=== PATIENT | male | born 1995 | race Caucasian/White ===

== ENCOUNTER 2018-09-19 10:13 | Inpatient (IN) ==
[2018-09-19] MEDS ORDERED: Naloxone 0.4 MG/ML INJ IVP PRN (10:44)
--- NOTE | 2018-09-19 11:01 | Pulmonology History & Physical ---
<Jordan Lei M - Last Filed: 09/19/18 16:33> Date of Encounter: 09/19/18 History of Present Illness HPI: Mr. Ownes is a 23 year old male Medications and Allergies Clindamycin HCl [Cleocin HCl] 300 mg PO TID 09/19/18 [History] Allergy/AdvReac Type Severity Reaction Status Date / Time Amoxicillin Allergy Hives Verified 12/28/16 09:05 Penicillins Allergy Hives Verified 12/28/16 09:05 All Systems: The remainder of the systems were reviewed and are negative Physical Examination Vital Signs: Vital Signs, Last 4 Hours Pulse Resp BP Pulse Ox 09/19/18 15:17 113 09/19/18 15:00 14 111/69 96 09/19/18 14:00 121 14 111/73 95 09/19/18 13:00 121 16 114/54 97 Results - Laboratory Findings CBC and BMP: 09/19/18 13:35 09/19/18 13:35 PT/INR, D-dimer PT 12.3 Seconds (9.4-12.1) H 09/19/18 07:51 Abnormal lab findings: Abnormal lab results PT 12.3 Seconds (9.4-12.1) H 09/19/18 07:51 APTT 38.1 Seconds (26.0-36.0) H 09/19/18 07:51 Glucose 62 mg/dL (70-105) L 09/19/18 13:35 Calcium 8.2 mg/dL (8.6-10.3) L 09/19/18 13:35 Total Bilirubin 0.2 mg/dL (0.3-1.0) L 09/19/18 07:51 Creatine Kinase > 64971 Units/L (30-223) H 09/19/18 13:35 Troponin I 0.24 ng/mL (< 0.04) H* 09/19/18 13:35 TSH 8.022 mcIU/mL (0.340-5.600) H 09/19/18 07:51 Urine Protein 30 mg/dL (Neg-Trace) H 09/19/18 08:03 Granular Casts Few per lpf (None Seen) H 09/19/18 08:03 Salicylates < 2.5 mg/dL (15.0-30.0) L 09/19/18 07:51 Urine Opiates Screen Positive ng/mL (Xxbxki=000) H 09/19/18 08:03 Acetaminophen < 10 mcg/mL (10-20) L 09/19/18 07:51 U Benzodiazepines Scrn Positive ng/mL (Msyvum=920) H 09/19/18 08:03 - Attending Attestation I examined this patient and my medical decision-making was reviewed with the Resident Physician. I agree with the documented findings, disposition and treatment plan as described except to the extent set forth below. Patient seen and examined. Labs, radiology, chart personally reviewed. 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 Pulmonary: Acceptable oxygenation and ventilation Cardiovascular: stable and his temperature is normalizing GI: Nutrition per dietary and GI prophylaxis per routine Heme: DVT prophylaxis per routine Renal; urine out put and renal funtion reviewed. Patient with evidence of rhabdomyolysis with elevation of CPK which could be from his lying down and he would be treated with sodium bicarbonate drip and I am hoping he would be discharged home in next 24 hours. Endorcine: blood glucose is monitored Lines: all lines checked and no evidence of infections Skin: skin care to prevent pressure ulcers per nursing routine care Patient is hemodynamically stable and transferred to the floor. Have discussed with the parents at the bedside regarding how serious his this and they understand that and they would do everything to keep him safe when he is discharged home. She was in the rehabilitation for substance abuse. <Christopher Lewis - Last Filed: 09/19/18 18:51> Date of Encounter: 09/19/18 Time of Encounter: 10:00 Assessment and Plan (1) Hypothermia Current visit: Yes Status: Acute Pt was found down, unknown down time. Initial internal temp was 84.5 Temp normal now at 98.0 without blankets or bear hugger Vitals stable. Pt alert and oriented x3. Labs on admission revealed elevated troponin and CK, likely caused by hyp othermia and unknown down time Repeat CK increased at >28075. Started D5 half NS with bicarb. Repeat Troponin remains elevated at 0.24, no EKG changes, pt not complaining of chest pain, SOB, or diaphoresis at this time. Pt does have hx of polysubstance abuse and completed a 12 week rehab program yesterday. UDS positive for Benzos and Opioids. 1 dose of Narcan was given by EMS in the field and pt's mentation improved. Pt's mother brought in a notebook in which the pt had wrote "I wish I wasn't alive" and had a drawing of a gun against a sad face Multiple thin scars noted on pt's abdomen. Pt admits to self harm when he was 16. Psych consult for known bipolar disorder and possibility of self harm. Pt does deny any SI/HI at this time. Continue to trend CK/Trop/Lactic Acid Monitor electrolytes Stable to transfer out of ICU. Spoke with Dr. Dobbins, however pt may stay in ICU overnight based on repeat labs Continue Clindamycin for known dental/intraoral abscess Qualifiers: Encounter type: initial encounter Qualified Code(s): T68.XXXA - Hypothermia, initial encounter (2) Rhabdomyolysis Current visit: Yes Status: Acute plan as above Qualifiers: Rhabdomyolysis type: non-traumatic Qualified Code(s): M62.82 - Rhabdomyolysis (3) Substance abuse Current visit: Yes Status: Chronic plan as above (4) Elevated troponin Current visit: Yes Status: Acute plan as above History of Present Illness Chief complaint: hypothermia/OD HPI: Mr. Owens is a 23M with PMH of polysubstance abuse who presented today after being found by a bystander. He was lying [place] the middle [place] and was unresponsive. EMS arrived and found the pt to be very cold with wet clothes. Of note, the outside ambient temperature was 28 degrees Fahrenheit and it had been raining all night. EMS administered Narcan, but were unable to get an IV or Accu-check. Upon arrival to the ED, pt's temp was 84.7. Pt responded to painful stimuli. Extremities were mottled, but pulses were palpable. He received 2L warmed saline. Placed on bear hugger and in C-collar since unknown hx of fall or trauma. Anand catheter was placed and bladder temp was 84.5. During the encounter with this provider, pt was responsive to verbal stimuli and answered some questions. Pt was shivering underneath multiple blankets and a bear-hugger. Pt's family at bedside stated the pt had just left rehab yesterday for hx of narcotic and benzodiazepine abuse. Pt was able to state that he did fall and thinks he struck his head. Currently complaining of diffuse back pain, left thigh pain, and right calf pain. Past Med Surg Social Fam HX - Past Medical History Medical history: no medical history Psychiatric history: anxiety, depression, prior suicide attempt - Past Surgical History Surgical History: no surgical history - Social History Smoking Status: Current every day smoker Smokeless Tobacco Status: No Alcohol use: none Drug use: cocaine, opiates, marijuana, IV Drug Use All Systems: The remainder of the systems were reviewed and are negative - Constitutional Constitutional: no chills, no fever(s), no weakness - Cardiovascular Cardiovascular: no chest pain, no diaphoresis, no dyspnea, no palpitations - Respiratory Respiratory: no cough, no dyspnea, no dyspnea on exertion, no wheezing - Gastrointestinal Gastrointestinal: no abdominal pain, no nausea, no vomiting - Musculoskeletal Musculoskeletal: no weakness, no numbness, no tingling - Neurological Neurological: no confusion, no numbness, no syncope, no tingling, no weakness - Psychiatric Psychiatric: depression, no suicidal ideation Physical Examination General appearance: lethargic ENT: oropharynx dry Neck: supple Effort: normal Inspection: normal Auscultation: bilateral: clear Percussion: bilateral: not dull Tactile fremitus: bilateral: normal Cardiovascular: other (tachycardic) Gastrointestinal: normoactive bowel sounds, soft, non-tender, non-distended Integumentary: normal Extremities: no cyanosis, no edema, no clubbing, pink and warm, pulses normal Musculoskeletal: no deformities normal mental status, motor strength normal and symmetric, other (pupils pinpoint bilaterally ) depressed Results - Laboratory Findings CBC and BMP: 09/19/18 13:35 09/19/18 13:35
[2018-09-19 13:51] LABS: Basophils % 0.1 %; Eosinophils % 0.1 %; Hematocrit 45.3 % (37.5-50.1); Hemoglobin 15.1 g/dL (12.9-16.9); Immature Granulocytes % 0.2 % (0-4); Lymphocytes # 0.9 K/mcL (0.6-4.6); Lymphocytes % 9.7 %; Mean Corpuscular HGB Conc 33.3 g/dL (31.6-35.5); Mean Corpuscular Hemoglobin 30.4 pg (28.0-33.3); Mean Corpuscular Volume 91.1 fL (83.0-100.0); Monocytes # 0.6 K/mcL (0.0-1.3); Neutrophils # 7.3 K/mcL (1.6-8.9); Platelet Count 206 K/mcL (140-400); Red Blood Count 4.97 M/mcL (4.19-5.50); Red Cell Distribution Width 11.9 % (11.5-14.5); Segmented Neutrophils % 82.9 %
[2018-09-19 14:54] LABS: BUN/Creatinine Ratio 15 (6-26); Blood Urea Nitrogen 17 mg/dL (6-20); Calcium 8.2 mg/dL (8.6-10.3); Carbon Dioxide 26 mEq/L (23-29); Chloride 107 mEq/L (98-107); Creatine Kinase > 20000 Units/L (30-223); Glucose 62 mg/dL (70-105); Osmolality,Calculated 288 (280-300); Potassium 4.6 mEq/L (3.5-5.1); Sodium 139 mEq/L (136-145); eGFR For Non-African Americans > 60 (> 60)
[2018-09-19] MEDS ORDERED: Ringers Solution, Lactated 1,000 ML ONE (15:11)
[2018-09-19 15:15] LABS: Red Blood Count 5.58 M/mcL (4.19-5.50)
[2018-09-19] MEDS ORDERED: Ringers Solution, Lactated 1,000 ML IVC SCH (15:15)
[2018-09-19 15:16] LABS: Hematocrit 51.6 % (37.5-50.1); Immature Granulocytes % 0.7 % (0-4); Mean Corpuscular HGB Conc 32.9 g/dL (31.6-35.5); Mean Corpuscular Hemoglobin 30.5 pg (28.0-33.3); Mean Corpuscular Volume 92.5 fL (83.0-100.0); Mean Platelet Volume 10.4 fL (9.4-12.4); Neutrophils # 9.1 K/mcL (1.6-8.9); Platelet Count 272 K/mcL (140-400); Red Cell Distribution Width 11.9 % (11.5-14.5); Segmented Neutrophils % 71.7 %
[2018-09-19 15:17] LABS: Basophils # 0.1 K/mcL (0.0-0.2); Basophils % 0.4 %; Eosinophils % 0.2 %; Lymphocytes # 2.2 K/mcL (0.6-4.6); Lymphocytes % 17.3 %; Monocytes # 1.2 K/mcL (0.0-1.3); Monocytes % 9.7 %
[2018-09-19 15:22] LABS: INR 1.1; Prothrombin Time 12.3 Seconds (9.4-12.1)
[2018-09-19 15:23] LABS: Activated Partial Thrombo Time 38.1 Seconds (26.0-36.0)
[2018-09-19 15:25] LABS: Bilirubin,Urine Negative (Negative); Blood,Urine Negative (Negative); Clarity,Urine Clear (Clear); Color,Urine Yellow (Yellow); Glucose,Urine (UA) Normal (Normal); Ketones,Urine Negative (Negative); Leukocyte Esterase,Urine Negative (Negative); Nitrite,Urine Negative (Negative); PH,Urine 5.5 pH Units (5.0-8.0); Protein,Urine 30 mg/dL (Neg-Trace); Specific Gravity,Urine 1.017 (1.010-1.025); Urobilinogen,Urine Normal (Normal); WBC,Urine 0-3 per hpf (0-3)
[2018-09-19 15:26] LABS: Amorphous Sediment,Urine Few (Few); Granular Casts,Urine Few per lpf (None Seen); Hyaline Casts,Urine Few per lpf (None-Few); Mucus,Urine Few (Few)
[2018-09-19 15:34] LABS: BUN/Creatinine Ratio 15 (6-26); Blood Urea Nitrogen 17 mg/dL (6-20); Carbon Dioxide 30 mEq/L (23-29); Chloride 103 mEq/L (98-107); Glucose 137 mg/dL (70-105); Osmolality,Calculated 296 (280-300); Potassium 4.9 mEq/L (3.5-5.1); Sodium 141 mEq/L (136-145); eGFR For Non-African Americans > 60 (> 60)
[2018-09-19 15:35] LABS: Alanine Aminotransferase 32 Units/L (7-52); Albumin 5.1 g/dL (3.5-5.7); Albumin/Globulin Ratio 1.8 (1.1-2.2); Alkaline Phosphatase 101 Units/L (34-104); Aspartate Amino Transferase 31 Units/L (13-39); Bilirubin,Direct 0.1 mg/dL (0.0-0.2); Bilirubin,Indirect 0.1 mg/dL (0.0-1.2); Bilirubin,Total 0.2 mg/dL (0.3-1.0); Calcium 9.5 mg/dL (8.6-10.3); Creatine Kinase 455 Units/L (30-223); Globulin 2.8 g/dL (2.4-3.5); Total Protein 7.9 g/dL (6.4-8.9)
[2018-09-19 15:38] LABS: Acetaminophen < 10 mcg/mL (10-20); Ethanol < 10 mg/dL (Less than 10); Salicylate < 2.5 mg/dL (15.0-30.0); Thyroid Stimulating Hormone 8.022 mcIU/mL (0.340-5.600)
[2018-09-19 15:46] LABS: Amphetamine Screen,Urine Negative ng/mL (Cutoff=1000); Barbiturate Screen,Urine Negative ng/mL (Cutoff=200); Benzodiazepines Screen,Urine Positive ng/mL (Cutoff=200)
[2018-09-19 15:47] LABS: Cannabinoid Screen,Urine Negative ng/mL (Cutoff = 50); Cocaine Screen,Urine Negative ng/mL (Cutoff= 300); Opiate Screen,Urine Positive ng/mL (Cutoff=300); Phencyclidine Screen,Urine Negative ng/mL (Cutoff=25)
[2018-09-19] MEDS ORDERED: D5% in 0.45% NACL 1,000 ML IVC SCH (16:00)
[2018-09-19 16:41] LABS: VBG HCO3 21 mEq/L (21-27); VBG PCO2 72 mmHg (41-51); VBG PH 7.08 pH Units (7.32-7.42); VBG PO2 62 mmHg (25-50)
[2018-09-19] MEDS: Nicotine 21 MG PATCH.TD24 TD SCH (19:10)
[2018-09-19 21:16] LABS: Troponin I 0.24 ng/mL (< 0.04)
[2018-09-19 21:26] LABS: Creatine Kinase > 20000 Units/L (30-223)
[2018-09-20] MEDS ORDERED: D5% in 0.45% NACL 1,000 ML IVC SCH (03:30)
[2018-09-20 05:26] LABS: Basophils % 0.1 %; Eosinophils # 0.1 K/mcL (0.0-0.6); Eosinophils % 1.1 %; Hematocrit 39.1 % (37.5-50.1); Immature Granulocytes % 0.3 % (0-4); Lymphocytes # 1.6 K/mcL (0.6-4.6); Lymphocytes % 22.1 %; Mean Corpuscular HGB Conc 34.3 g/dL (31.6-35.5); Mean Corpuscular Hemoglobin 30.9 pg (28.0-33.3); Mean Corpuscular Volume 90.3 fL (83.0-100.0); Mean Platelet Volume 10.3 fL (9.4-12.4); Monocytes # 0.5 K/mcL (0.0-1.3); Monocytes % 7.6 %; Neutrophils # 4.9 K/mcL (1.6-8.9); Platelet Count 171 K/mcL (140-400); Red Blood Count 4.33 M/mcL (4.19-5.50); Red Cell Distribution Width 11.9 % (11.5-14.5); Segmented Neutrophils % 68.8 %
[2018-09-20 05:30] LABS: Hemoglobin 13.4 g/dL (12.9-16.9)
[2018-09-20 06:33] LABS: Alanine Aminotransferase 97 Units/L (7-52); Albumin 3.5 g/dL (3.5-5.7); Albumin/Globulin Ratio 1.8 (1.1-2.2); Alkaline Phosphatase 61 Units/L (34-104); Aspartate Amino Transferase 386 Units/L (13-39); BUN/Creatinine Ratio 12 (6-26); Bilirubin,Total 0.5 mg/dL (0.3-1.0); Blood Urea Nitrogen 11 mg/dL (6-20); Calcium 8.1 mg/dL (8.6-10.3); Carbon Dioxide 27 mEq/L (23-29); Chloride 105 mEq/L (98-107); Creatine Kinase > 20000 Units/L (30-223); Globulin 1.9 g/dL (2.4-3.5); Glucose 120 mg/dL (70-105); Magnesium 1.9 mg/dL (1.6-2.6); Osmolality,Calculated 287 (280-300); Phosphorous 2.9 mg/dL (2.7-4.5); Potassium 3.5 mEq/L (3.5-5.1); Sodium 138 mEq/L (136-145); Total Protein 5.4 g/dL (6.4-8.9); eGFR For Non-African Americans > 60 (> 60)
[2018-09-20] MEDS: Nicotine 21 MG PATCH.TD24 TD SCH (08:18)
--- NOTE | 2018-09-20 08:44 | Pulmonology Progress Note ---
<Whitney Carrion C - Last Filed: 09/20/18 13:05> Date of Encounter: 09/20/18 Time of Encounter: 08:44 Assessment and Plan (1) Hypothermia Current Visit: Yes Status: Resolved Initial rectal termperature upon arrival of 84.5 degrees F. Current temperature 98.1 with out blankets. Patient resting comfortably, eating, drinking, out of bed to use the toilet. Patient vitals stable. Continuing to trend troponins, CPK. Patient stable to transfer out of ICU to medical floor without telemetry. Will speak with admitting hospitalist. Continue Clindamycin for intraoral/ dental abscess. Qualifiers: Encounter type: initial encounter Qualified Code(s): T68.XXXA - Hypothermia, initial encounter (2) Rhabdomyolysis Current Visit: Yes Status: Acute Patient found down in local [place] morning of 09/19/2018, unknown last well. Initial CPK of 455. Subsequent CPK >41174 x3. Initial lactic acid of 2.9 has returned to normal at values < 1.0 x3. Patient complaining of lower extremity aches bilaterally. Continue monitoring CPK, troponin, renal function. Qualifiers: Rhabdomyolysis type: non-traumatic Qualified Code(s): M62.82 - Rhabdomyolysis (3) Elevated creatine kinase Current Visit: Yes Status: Acute Plan as above. (4) Elevated troponin Current Visit: Yes Status: Acute Troponin trending up to 0.24 in two consecutive blood draws. Repeat Troponin this morning of 0.20. Will continue to trend. Patient denies chest pain, shortness of breath at this time. Patient stable to transfer out of ICU. (5) Suicidal ideation Current Visit: Yes Status: Acute Last evening, while speaking on the phone with his mother, the patient voiced suicidal ideation. Patient's mother called ICU nurse to inform. Night team placed Psych consult. Sitter in patient room currently. Patient denied active suicidal ideation during exam; however, is agreeable to speaking with psych team. (6) Substance abuse Current Visit: Yes Status: Chronic Patient has history of polysubstance abuse. Recent rehab completion 2-3 days prior to arrival. Urine tox screen positive for opiates and benzos. Subjective Principal diagnosis: Hypothermia Interval history: Patient was found down the [place] of 09/19/2018 [place], with an unkn own last well. Secondary to drug overdose. Patient tested positive for opiates and benzos. Rectal temperature initially of 84.5 F. Current temp is 98.1 without bear hugger or blankets. Vitals stable since admission. Patient is alert and oriented to person, place, time. Trending CPK remained >60380. Continuing IV fluid hydration with D5 half normal saline with bicarb. Troponins of 0.24 in two consecutive blood draws, will continue to trend. Patient denies shortness of breath, chest pain at this time. Patient eating, drinking, and out of bed since yesterday afternoon. History of polysubstance abuse with recent rehab completion. Patient voiced suicidal ideation to mother last night, psych consulted, sitter in room currently. Objective PUL Vital signs: Last Vital Signs Temp 98.3 F 09/20/18 07:58 Pulse 106 09/20/18 07:58 Resp 11 09/20/18 07:58 BP 114/68 09/20/18 07:58 Pulse Ox 97 09/20/18 07:58 General appearance: no acute distress, alert Effort: normal Auscultation: bilateral: clear Cardiovascular: regular rate and rhythm Extremities: no cyanosis, pink and warm Musculoskeletal: no deformities, other (Pain in bilateral lower extermities. Right worse than the left with palpation. ) other (Patient agreeable to speaking with psych regarding stated suicidal ideations. Does not admit to active suicidal ideation at this time. ) Results - Laboratory Findings CBC and BMP: 09/20/18 04:53 09/20/18 04:53 PT/INR, D-dimer PT 12.3 Seconds (9.4-12.1) H 09/19/18 07:51 Abnormal lab findings: Abnormal lab results PT 12.3 Seconds (9.4-12.1) H 09/19/18 07:51 APTT 38.1 Seconds (26.0-36.0) H 09/19/18 07:51 VBG pH 7.08 pH Units (7.32-7.42) L* 09/19/18 08:37 VBG pCO2 72 mmHg (41-51) H* 09/19/18 08:37 VBG pO2 62 mmHg (25-50) H 09/19/18 08:37 Glucose 120 mg/dL (70-105) H 09/20/18 04:53 Calcium 8.1 mg/dL (8.6-10.3) L 09/20/18 04:53 AST 386 Units/L (13-39) H 09/20/18 04:53 ALT 97 Units/L (7-52) H 09/20/18 04:53 Creatine Kinase > 65298 Units/L (30-223) H 09/20/18 04:53 Troponin I 0.24 ng/mL (< 0.04) H* 09/19/18 20:41 Serum Total Protein 5.4 g/dL (6.4-8.9) L 09/20/18 04:53 Globulin 1.9 g/dL (2.4-3.5) L 09/20/18 04:53 TSH 8.022 mcIU/mL (0.340-5.600) H 09/19/18 07:51 Urine Protein 30 mg/dL (Neg-Trace) H 09/19/18 08:03 Granular Casts Few per lpf (None Seen) H 09/19/18 08:03 Salicylates < 2.5 mg/dL (15.0-30.0) L 09/19/18 07:51 Urine Opiates Screen Positive ng/mL (Vknfdb=018) H 09/19/18 08:03 Acetaminophen < 10 mcg/mL (10-20) L 09/19/18 07:51 U Benzodiazepines Scrn Positive ng/mL (Jqapjf=646) H 09/19/18 08:03 - Clinical Findings Intake & Output: Intake & Output 09/19/18 09/20/18 09/20/18 23:59 07:59 15:59 Intake Total 1580 / 1580 240 / 240 240 / 240 Output Total 550 / 550 1100 / 1100 350 / 350 Balance 1030 / 1030 -860 / -860 -110 / -110 Consult Discharge Plan - Plan Referrals: NONE,PCP [Primary Care Provider] - <Jordan Lei - Last Filed: 09/21/18 08:18> Date of Encounter: 09/21/18 Objective PUL Vital signs: Last Vital Signs Temp 98.3 F 09/20/18 07:58 Pulse 116 09/20/18 09:00 Resp 25 09/20/18 09:00 BP 109/73 09/20/18 09:00 Pulse Ox 98 09/20/18 09:00 Results - Laboratory Findings CBC and BMP: 09/20/18 04:53 09/20/18 04:53 PT/INR, D-dimer PT 12.3 Seconds (9.4-12.1) H 09/19/18 07:51 Abnormal lab findings: Abnormal lab results PT 12.3 Seconds (9.4-12.1) H 09/19/18 07:51 APTT 38.1 Seconds (26.0-36.0) H 09/19/18 07:51 VBG pH 7.08 pH Units (7.32-7.42) L* 09/19/18 08:37 VBG pCO2 72 mmHg (41-51) H* 09/19/18 08:37 VBG pO2 62 mmHg (25-50) H 09/19/18 08:37 Glucose 120 mg/dL (70-105) H 09/20/18 04:53 Calcium 8.1 mg/dL (8.6-10.3) L 09/20/18 04:53 AST 386 Units/L (13-39) H 09/20/18 04:53 ALT 97 Units/L (7-52) H 09/20/18 04:53 Creatine Kinase > 96674 Units/L (30-223) H 09/20/18 04:53 Troponin I 0.20 ng/mL (< 0.04) H* 09/20/18 08:26 Serum Total Protein 5.4 g/dL (6.4-8.9) L 09/20/18 04:53 Globulin 1.9 g/dL (2.4-3.5) L 09/20/18 04:53 TSH 8.022 mcIU/mL (0.340-5.600) H 09/19/18 07:51 Urine Protein 30 mg/dL (Neg-Trace) H 09/19/18 08:03 Granular Casts Few per lpf (None Seen) H 09/19/18 08:03 Salicylates < 2.5 mg/dL (15.0-30.0) L 09/19/18 07:51 Urine Opiates Screen Positive ng/mL (Dihcjb=999) H 09/19/18 08:03 Acetaminophen < 10 mcg/mL (10-20) L 09/19/18 07:51 U Benzodiazepines Scrn Positive ng/mL (Cvbkwh=218) H 09/19/18 08:03 - Clinical Findings Intake & Output: Intake & Output 09/19/18 09/20/18 09/20/18 23:59 07:59 15:59 Intake Total 1580 / 1580 240 / 240 240 / 240 Output Total 550 / 550 1100 / 1100 350 / 350 Balance 1030 / 1030 -860 / -860 -110 / -110 - Attending Attestation The history, physical exam, and medical decision making was performed by the medical student either while I was physically present and actively involved or I personally re-performed the exam and medical decision making. I have verified the accuracy of the medical student's documentation with regards to the history, physical exam findings, and medical decision making. Labs, radiology, chart personally reviewed. 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 Continue IV fluid and clinically patient has no evidence of significant rhabdomyolysis and he can be transferred to the floor. Endorcine: blood glucose is monitored Lines: all lines checked and no evidence of infections Skin: skin care to prevent pressure ulcers per nursing routine care Psych: She stated he had suicidal thoughts when he overdosed, however he is not suicidal at this time and patient can be transferred to the floor with the psych evaluation.
[2018-09-20] MEDS ORDERED: Naloxone 0.4 MG/ML INJ IVP PRN (12:54)
--- NOTE | 2018-09-20 15:49 | Emergency Department Note ---
Disposition Clinical Impression: Hypothermia, Elevated CK, Elevated troponin, Lactic acidosis, Altered mental status, History of substance abuse Disposition: Admitted As Inpatient Condition: Fair Time of Disposition: 08:24 General Adult HPI - General Chief complaint: ED Altered Mental Status Stated complaint: Hypothermia, OD Source: EMS Mode of arrival: EMS Limitations: altered mental status Nursing Notes Reviewed: Yes Vital Signs Reviewed: Yes - History of Present Illness HPI Narrative: Patient was seen and evaluated under WRONG account number, this is copy of dictation note Time Seen by Provider: 09/19/18 07:54 Source: EMS Mode of arrival: EMS Limitations: altered mental status Nursing Notes Reviewed: Yes Vital Signs Reviewed: Yes - History of Present Illness HPI Narrative: Baron Argueta presents via EMS with concern for possible drug overdose and hypothermia. He was found outside on a football field unresponsive when a bystander called EMS. The ambient temperature outside is 33F and raining all night. Narcan was administered. His glucose was reportedly 130s. Bedside point of care glucose performed 133. Patient presents with the rectal temperature of 84.7. He is shivering with constricted pupils are sluggish and reactive. He localizes to pain. He is clenched at the mouth and shivering. Immediately his drenched bed sheets and blankets were replaced with warm dry blankets. The warm ers were turned on in the trauma resuscitation bay. A cervical collar was immediately placed upon arrival. With cervical mobilization she was rolled to evaluate for any obvious trauma to the back which was absent. His extremities are cool to the touch and slightly cyanotic without any obvious necrosis. Delayed cap refill. nurse monitoring and pulse oximetry was placed which she is 97 with a sinus rhythm and 100% on room air. He is protecting his airway. His initial GCS is [id number]. - Related Data Home Medications Medication Instructions Recorded Confirmed Clindamycin HCl [Cleocin HCl] 300 mg PO TID 09/19/18 09/19/18 Allergies Allergy/AdvReac Type Severity Reaction Status Date / Time Amoxicillin Allergy Hives Verified 12/28/16 09:05 Penicillins Allergy Hives Verified 12/28/16 09:05 Review of Systems: As Per HPI Limitations: ROS unobtainable due to patients medical condition Past Medical History - Past Medical History Source: old records reviewed Medical history: Reports: no medical history Surgical history: Reports: no surgical history Psychiatric history: Reports: anxiety, depression, prior suicide attempt - Social History Smoking Status: Current every day smoker Smokeless Tobacco Status: No Alcohol use: Reports: none Drug use: Reports: cocaine, opiates, marijuana, IV Drug Use Physical Exam - General Limitations: altered mental status General appearance: lethargic, other (Very cold to the touch) - Head Head exam: atraumatic, normocephalic - Eye Eye exam: Present: PERRL, miosis - ENT ENT exam: TM's normal bilaterally, other (His teeth are clenched) - Neck Neck exam: Present: other (Patient was placed in the cervical collar) - Chest Chest inspection: Present: normal inspection, symmetric chest wall rise. Absent: rash - Expanded Chest Exam Trauma: Absent: crepitus, laceration, wound - Expanded Respiratory Exam Location: rhonchi: Lower, Right, Left - Cardiovascular Cardiovascular exam: Present: regular rate, normal rhythm, normal heart sounds - Abdominal Exam Abdominal exam: Present: soft. Absent: trauma - Male exam: Present: normal inspection, circumcised - Extremities Exam Extremities exam: Present: other (Delayed capillary refill with peripheral cyanosis), multiple old linear scars to forearm - Expanded Neurological Exam Coma Scale Eye Opening: Spontaneous Coma Scale Motor Response: Localizes to Pain Coma Scale Verbal Response: None Coma Scale Total: 10 - Skin Skin exam: Present: cyanosis, pallor, other (Cold and wet) - General Limitations: altered mental status Course - Reevaluation(s) Reevaluation #1: Patient is now more awake he is talking stating that he is very cold. He is being aggressively re-warmed with blankets and the mi hugger. GCS is now 15. Patient is in soft restraints at this time. Time: 08:15 Reevaluation #2: Temp is now 87.2. He is trending in the right direction. Continues to be more alert. He is complaining of pain and is slightly more tachycardic. He was initially given Ativan to help with some sedation but has now been initiated on Precedex. He has had critical lab values of a troponin 0.10 likely secondary to some man ischemia. His lactate is also elevated at 2.9. His CPK 455. He is currently being fluid resuscitated with warm saline. His urine drug screen is positive for opiates and benzos. Chest x-ray did not reveal any findings concerning for aspiration pneumonia at this time. Plan is for admission to ICU for continued cardiac monitoring. Time: 08:28 - Consultations Consultation #1: Spoke with the ICU intensive is Dr. Lei who accepts the patient for admission and continued monitoring for his environmental hypothermia, elevated CK, lactate and presumed opiate overdose. Recommendation for possible psychiatric evaluation given the circumstances. Now that he is more awake and alert the CT images may be performed when he gets to the ICU floor or canceled as he is becoming more alert as his initial presentation was concerning for possible head or cervical trauma. No obvious head or facial trauma on evaluation. Time: 08:34 Vital Signs Pulse Rate 115 09/19/18 10:15 Temperature 98.3 F 09/20/18 12:00 Pulse Rate 105 09/20/18 12:00 Respiratory Rate 13 09/20/18 12:00 Blood Pressure 121/82 09/20/18 12:00 O2 Sat by Pulse Oximetry 97 09/20/18 12:00 Medical Decision Making - MDM Narrative Medical decision making narrative: Patient was discussed with my attending physician who agrees with ED management and final disposition. They independently evaluated the patient. Please refer to their attestation to this encounter for additional information. This note was generated by [email or web address] voice recognition software and as a result grammatical or spelling errors may occur using this program. - Medical Records Medical records reviewed: Yes I reviewed the patient's medical records. - Lab Data Lab results reviewed: Yes I reviewed the patient's lab results. Result diagrams: 09/20/18 04:53 09/22/18 07:34 Lab Results 09/19/18 09/19/18 09/19/18 Range/Units 07:51 07:51 07:51 WBC 12.7 H (4.3-11.1) K/mcL RBC 5.58 H (4.19-5.50) M/mcL Hgb 17.0 H (12.9-16.9) g/dL Hct 51.6 H (37.5-50.1) % MCV 92.5 (83.0-100.0) fL MCH 30.5 (28.0-33.3) pg MCHC 32.9 (31.6-35.5) g/dL RDW 11.9 (11.5-14.5) % Plt Count 272 (140-400) K/mcL MPV 10.4 (9.4-12.4) fL Immature Gran % 0.7 (0-4) % Seg Neutrophils % 71.7 % Lymphocytes % 17.3 % Monocytes % 9.7 % Eosinophils % 0.2 % Basophils % 0.4 % Neutrophils # 9.1 H (1.6-8.9) K/mcL Lymphocytes # 2.2 (0.6-4.6) K/mcL Monocytes # 1.2 (0.0-1.3) K/mcL Eosinophils # 0.0 (0.0-0.6) K/mcL Basophils # 0.1 (0.0-0.2) K/mcL PT 12.3 H (9.4-12.1) Seconds INR 1.1 APTT 38.1 H (26.0-36.0) Seconds VBG pH (7.32-7.42) pH Units VBG pCO2 (41-51) mmHg VBG pO2 (25-50) mmHg VBG HCO3 (21-27) mEq/L Sodium 141 (136-145) mEq/L Potassium 4.9 (3.5-5.1) mEq/L Chloride 103 (98-107) mEq/L Carbon Dioxide 30 H (23-29) mEq/L BUN 17 (6-20) mg/dL Creatinine 1.13 (0.70-1.30) mg/dL Est GFR ( Amer) > 60 (> 60) Est GFR (Non-Af Amer) > 60 (> 60) BUN/Creatinine Ratio 15 (6-26) Glucose 137 H (70-105) mg/dL Calculated Osmolality 296 (280-300) Lactic Acid (0.5-2.2) mmol/L Calcium 9.5 (8.6-10.3) mg/dL Total Bilirubin 0.2 L (0.3-1.0) mg/dL Direct Bilirubin 0.1 (0.0-0.2) mg/dL Indirect Bilirubin 0.1 (0.0-1.2) mg/dL AST 31 (13-39) Units/L ALT 32 (7-52) Units/L Alkaline Phosphatase 101 (34-104) Units/L Creatine Kinase 455 H (30-223) Units/L Troponin I 0.10 H* (< 0.04) ng/mL Serum Total Protein 7.9 (6.4-8.9) g/dL Albumin 5.1 (3.5-5.7) g/dL Globulin 2.8 (2.4-3.5) g/dL Albumin/Globulin Ratio 1.8 (1.1-2.2) TSH 8.022 H (0.340-5.600) mcIU/mL Random Cortisol 18.9 mcg/dl Urine Color (Yellow) Urine Clarity (Clear) Urine pH (5.0-8.0) pH Units Ur Specific [place] (1.010-1.025) Urine Protein (Neg-Trace) mg/dL Urine Glucose (UA) (Normal) mg/dL Urine Ketones (Negative) mg/dL Urine Blood (Negative) Urine Nitrite (Negative) Urine Bilirubin (Negative) Urine Urobilinogen (Normal) mg/dL Ur Leukocyte Esterase (Negative) Urine Microscopic WBC (0-3) per hpf Amorphous Sediment (Few) Hyaline Casts (None-Few) per lpf Granular Casts (None Seen) per lpf Urine Mucus (Few) Ur Culture Indicated? (NO) Salicylates < 2.5 L (15.0-30.0) mg/dL Urine Opiates Screen (Mlmmcv=810) ng/mL Acetaminophen < 10 L (10-20) mcg/mL Ur Barbiturates Screen (Nrvsaz=519) ng/mL Ur Phencyclidine Scrn (Cutoff=25) ng/mL Ur Amphetamines Screen (Lvkued=1800) ng/mL U Benzodiazepines Scrn (Imfdyl=177) ng/mL Urine Cocaine Screen (Cutoff= 300) ng/mL U Marijuana (THC) Screen (Cutoff = 50) ng/mL Ur Drug Screen Interp Ethyl Alcohol < 10 (Less than 10) mg/dL Person Notif of Crit Blood Type Antibody Screen 09/19/18 09/19/18 09/19/18 Range/Units 07:51 08:03 08:03 WBC (4.3-11.1) K/mcL RBC (4.19-5.50) M/mcL Hgb (12.9-16.9) g/dL Hct (37.5-50.1) % MCV (83.0-100.0) fL MCH (28.0-33.3) pg MCHC (31.6-35.5) g/dL RDW (11.5-14.5) % Plt Count (140-400) K/mcL MPV (9.4-12.4) fL Immature Gran % (0-4) % Seg Neutrophils % % Lymphocytes % % Monocytes % % Eosinophils % % Basophils % % Neutrophils # (1.6-8.9) K/mcL Lymphocytes # (0.6-4.6) K/mcL Monocytes # (0.0-1.3) K/mcL Eosinophils # (0.0-0.6) K/mcL Basophils # (0.0-0.2) K/mcL PT (9.4-12.1) Seconds INR APTT (26.0-36.0) Seconds VBG pH (7.32-7.42) pH Units VBG pCO2 (41-51) mmHg VBG pO2 (25-50) mmHg VBG HCO3 (21-27) mEq/L Sodium (136-145) mEq/L Potassium (3.5-5.1) mEq/L Chloride (98-107) mEq/L Carbon Dioxide (23-29) mEq/L BUN (6-20) mg/dL Creatinine (0.70-1.30) mg/dL Est GFR ( Amer) (> 60) Est GFR (Non-Af Amer) (> 60) BUN/Creatinine Ratio (6-26) Glucose (70-105) mg/dL Calculated Osmolality (280-300) Lactic Acid 2.9 H (0.5-2.2) mmol/L Calcium (8.6-10.3) mg/dL Total Bilirubin (0.3-1.0) mg/dL Direct Bilirubin (0.0-0.2) mg/dL Indirect Bilirubin (0.0-1.2) mg/dL AST (13-39) Units/L ALT (7-52) Units/L Alkaline Phosphatase (34-104) Units/L Creatine Kinase (30-223) Units/L Troponin I (< 0.04) ng/mL Serum Total Protein (6.4-8.9) g/dL Albumin (3.5-5.7) g/dL Globulin (2.4-3.5) g/dL Albumin/Globulin Ratio (1.1-2.2) TSH (0.340-5.600) mcIU/mL Random Cortisol mcg/dl Urine Color Yellow (Yellow) Urine Clarity Clear (Clear) Urine pH 5.5 (5.0-8.0) pH Units Ur Specific [place] 1.017 (1.010-1.025) Urine Protein 30 H (Neg-Trace) mg/dL Urine Glucose (UA) Normal (Normal) mg/dL Urine Ketones Negative (Negative) mg/dL Urine Blood Negative (Negative) Urine Nitrite Negative (Negative) Urine Bilirubin Negative (Negative) Urine Urobilinogen Normal (Normal) mg/dL Ur Leukocyte Esterase Negative (Negative) Urine Microscopic WBC 0-3 (0-3) per hpf Amorphous Sediment Few (Few) Hyaline Casts Few (None-Few) per lpf Granular Casts Few H (None Seen) per lpf Urine Mucus Few (Few) Ur Culture Indicated? NO (NO) Salicylates (15.0-30.0) mg/dL Urine Opiates Screen Positive H (Bzimhj=146) ng/mL Acetaminophen (10-20) mcg/mL Ur Barbiturates Screen Negative (Wkgwfc=302) ng/mL Ur Phencyclidine Scrn Negative (Cutoff=25) ng/mL Ur Amphetamines Screen Negative (Ygxyyb=3989) ng/mL U Benzodiazepines Scrn Positive H (Ejujil=243) ng/mL Urine Cocaine Screen Negative (Cutoff= 300) ng/mL U Marijuana (THC) Screen Negative (Cutoff = 50) ng/mL Ur Drug Screen Interp See Below Ethyl Alcohol (Less than 10) mg/dL Person Notif of Crit Blood Type Antibody Screen 09/19/18 09/19/18 Range/Units 08:11 08:37 WBC (4.3-11.1) K/mcL RBC (4.19-5.50) M/mcL Hgb (12.9-16.9) g/dL Hct (37.5-50.1) % MCV (83.0-100.0) fL MCH (28.0-33.3) pg MCHC (31.6-35.5) g/dL RDW (11.5-14.5) % Plt Count (140-400) K/mcL MPV (9.4-12.4) fL Immature Gran % (0-4) % Seg Neutrophils % % Lymphocytes % % Monocytes % % Eosinophils % % Basophils % % Neutrophils # (1.6-8.9) K/mcL Lymphocytes # (0.6-4.6) K/mcL Monocytes # (0.0-1.3) K/mcL Eosinophils # (0.0-0.6) K/mcL Basophils # (0.0-0.2) K/mcL PT (9.4-12.1) Seconds INR APTT (26.0-36.0) Seconds VBG pH 7.08 L* (7.32-7.42) pH Units VBG pCO2 72 H* (41-51) mmHg VBG pO2 62 H (25-50) mmHg VBG HCO3 21 (21-27) mEq/L Sodium (136-145) mEq/L Potassium (3.5-5.1) mEq/L Chloride (98-107) mEq/L Carbon Dioxide (23-29) mEq/L BUN (6-20) mg/dL Creatinine (0.70-1.30) mg/dL Est GFR ( Amer) (> 60) Est GFR (Non-Af Amer) (> 60) BUN/Creatinine Ratio (6-26) Glucose (70-105) mg/dL Calculated Osmolality (280-300) Lactic Acid (0.5-2.2) mmol/L Calcium (8.6-10.3) mg/dL Total Bilirubin (0.3-1.0) mg/dL Direct Bilirubin (0.0-0.2) mg/dL Indirect Bilirubin (0.0-1.2) mg/dL AST (13-39) Units/L ALT (7-52) Units/L Alkaline Phosphatase (34-104) Units/L Creatine Kinase (30-223) Units/L Troponin I (< 0.04) ng/mL Serum Total Protein (6.4-8.9) g/dL Albumin (3.5-5.7) g/dL Globulin (2.4-3.5) g/dL Albumin/Globulin Ratio (1.1-2.2) TSH (0.340-5.600) mcIU/mL Random Cortisol mcg/dl Urine Color (Yellow) Urine Clarity (Clear) Urine pH (5.0-8.0) pH Units Ur Specific [place] (1.010-1.025) Urine Protein (Neg-Trace) mg/dL Urine Glucose (UA) (Normal) mg/dL Urine Ketones (Negative) mg/dL Urine Blood (Negative) Urine Nitrite (Negative) Urine Bilirubin (Negative) Urine Urobilinogen (Normal) mg/dL Ur Leukocyte Esterase (Negative) Urine Microscopic WBC (0-3) per hpf Amorphous Sediment (Few) Hyaline Casts (None-Few) per lpf Granular Casts (None Seen) per lpf Urine Mucus (Few) Ur Culture Indicated? (NO) Salicylates (15.0-30.0) mg/dL Urine Opiates Screen (Epbfkq=401) ng/mL Acetaminophen (10-20) mcg/mL Ur Barbiturates Screen (Iwcsix=976) ng/mL Ur Phencyclidine Scrn (Cutoff=25) ng/mL Ur Amphetamines Screen (Udhqoi=7359) ng/mL U Benzodiazepines Scrn (Hpcynn=728) ng/mL Urine Cocaine Screen (Cutoff= 300) ng/mL U Marijuana (THC) Screen (Cutoff = 50) ng/mL Ur Drug Screen Interp Ethyl Alcohol (Less than 10) mg/dL Person Notif of Marshall BROWN Blood Type O POSITIVE Antibody Screen NEGATIVE - Radiology Data Radiology results reviewed: Yes I reviewed the patient's radiology results. Chest X-Ray 09/19/18 07:55 IMPRESSION: No acute process. D/ / Miles Hernandez MD / Miles Hernandez MD Interpreting Provider: Miles Hernandez MD - EKG Data EKG #1 EKG attestation: Yes I reviewed and interpreted this EKG. EKG results narrative: EKG performed at 0752, there is baseline artifact due to shivering however there is an appreciable [place] wave. Critical Care Time Critical Care Time: Yes Total Critical Care Time: 60 Attestation: Critical care performed: Time is exclusive of separately billable procedures. Time includes: direct patient care, patient reassessment, coordination of patient care, interpretation of data (laboratory data, radiology data, and respiratory data), review of patient's medical records, medical consultation and documentation of patient ca re. Procedures included in critical care time: Procedures excluded from critical care time: Attestation Statement - Attestation Attestation: I, Tor Mccabe DO, examined this patient [id number] and my medical decision-making was reviewed with Sae Brown DO , Resident Physician. I agree with the documented findings, disposition and treatment plan as described except to the extent set forth below. Please see my progress notes for details. 23-year-old male found by a bystander lying in the middle of the [place] football field unresponsive. EMS was called immediately. Patient was very cold. The outside ambient temperature this morning was 28 degrees Fahrenheit. The patient's clothes were soaked secondary to brain all night long. Patient had Narcan provided intranasally by EMS on arrival. They were unable to get an IV or Accu-Chek and transport. Patient presented here with the ability to protect against painful stimuli but his body and extremities were significantly mottled in color. He had pulses that were appreciable. A rectal temperature was collected immediately and his temperature was 84.7. Immediate rewarming processes were started. The room heater in the trauma bay was turned up to 110 degrees. Warm blankets as well as a bear hugger were placed. 2 peripheral IVs were started and warm saline infusion was administered. We were protective against cardiac stimulation this time secondary to the concern for arrhythmia from the hypothermia. Patient is at the verge of severe hypothermia at this time. C-collar was placed protectively secondary to unknown etiology. There is some concern for possible overdose or other intentions causing the presentation here today. Patient otherwise appears to be hemodynamically stable. His initial heart rate was 92. His pulse ox was 100% on room air. His blood pressure was 130/90. Head examination shows no visible signs of trauma. Pupils are sluggish but 2-3 mm and reactive. He has no signs of deformity or injury to the cervical spine. Thoracic and lumbar spine are unremarkable. No crepitus or deformity to the chest wall. No visible bruising trauma or injury at this time. Anand catheter was placed without any complication with a temperature probe. Bladder temperature at this time was 84.5. Rewarming processes will be contin ued at this point until the patient's core temperatures above 90 degrees and will continue to monitor closely. CT imaging of the head and cervical spine ordered. Labs including a CBC chemistry liver function testing lipase coags CPK and lactic acid will be ordered at this point. Initial EKG had a lot of underlying artifact secondary to shivering in will be repeated once the patient is rewarmed. Admission to the ICU will be completed after the workup and treatment course I been established. Approximately 60 minutes of critical care will be applied secondary to multidisciplinary intervention evaluation and treatment. Will monitor closely here in the emergency room until admission processes established. See detailed documentation of the physical exam, medical intervention, medical decision-making and disposition in the resident physician's note. Critical care documented as above 0900 Patient's temperature is now 94.8. He is mentating answering questions appropriately. He denies any trauma or injury. Family did arrive to the emergency room and we discussed the findings the workup and the treatment course with them at length. They are obviously upset with the situation but appreciative of our care. Patient will have the soft restraints removed at this time. His c-collar was also removed because he can follow commands and answer questions appropriately. He has full range of motion the neck and no midline tenderness he has no neurologic deficits at this time are distracting injuries. Patient will be admitted to the ICU for continuation of care. No other concerns or issues noted at this time. CT imaging of the head and cervical spine will be held at this point and completed at the discretion of the building operator. Patient is otherwise clinically stable. He will be transported to the ICU at this time.
--- NOTE | 2018-09-20 16:50 | Consult Note ---
Date of Encounter: 09/20/18 Time of Encounter: 16:00 Assessment & Recommendation (1) Opioid dependence with opioid-induced mood disorder Current visit: Yes Status: Acute (2) Bipolar disorder Current visit: Yes Status: Acute Qualifiers: Active/Remission status: currently active Current bipolar episode type: depressed Current episode severity: severe Psychotic features: without psychotic features Qualified Code(s): F31.4 - Bipolar disorder, current episode depressed, severe, without psychotic features (3) Bipolar disorder Current visit: Yes Status: Acute Qualifiers: Active/Remission status: currently active Current bipolar episode type: depressed Current episode severity: severe Psychotic features: without psychotic features Qualified Code(s): F31.4 - Bipolar disorder, current episode depressed, severe, without psychotic features History of Present Illness Patient: new to practice Requesting Physician: Ann Mcdaniel MD Reason for consult: h/o mood disorder History of present illness: Mr. Owens is a 23 year old male Chief complaint I would like to get a new treatment program. The patient was in his usual state of health and mood and was attending a rehabilitation program called [facility]. He been there for 2 months it was a clean and sober living arrangement with a strong hindu emphasis however he became frustrated in this situation and he went out and took some Xanax some heroin perhaps laced with fentanyl. His girlfriend reports that there was a frantic efforts to look for him and a lady observed him in a field passed out. The patient almost from hypothymia. He suffered significant rhabdomyolysis. The patient denies suicidal thinking at this time but notes that he is upset with his current situation and that he could relapse again. Past psychiatric history. In the past the patient has been in psychiatric hospitals as a juvenile and he has been diagnosed with bipolar disorder. He has no adult hospitalizations but is familiar with inpatient hospitalization. The patient has become depressed in the past and used drugs in effort to improve his thinking. The history and physical for additional information The patient's forensic history is that he was charged with multiple felonies in the state of [place] in a plea bargain he agreed to come for treatment in [place] and was bonded out. The patient missed a court hearing on the and once to report that he is in the ICU during that time. The patient can recall that he was treated with Abilify and lamotrigine but he did not like how a t affected him. The patient has been on Suboxone but did not like the withdrawal he was been on long-acting oral and injectable naltrexone. He only received one injection. He thought that that might have been helpful he has not been on methadone CC: Ann Mcdaniel MD Past Med Surg Social Fam HX - Past Medical History Medical history: no medical history - Past Psychiatric History Psychiatric history: Reports: bipolar, previous psychiatric hospitalization Family psychiatric history: Unknown Family History of Suicide: Unknown - Past Surgical History Surgical History: no surgical history - Social History Smoking Status: Current every day smoker Smokeless Tobacco Status: No Alcohol use: none Drug use: cocaine, opiates, marijuana, IV Drug Use Occupational status: unemployed Current living situation: Other Activity Level: Bed bound, Mostly sedentary Recent Out of Country Travel Within the Last 8 Weeks: No Exposure or Possible Exposure to Illness During Travel: No Medications & Allergies Clindamycin HCl [Cleocin HCl] 300 mg PO TID 09/19/18 [History] Allergy/AdvReac Type Severity Reaction Status Date / Time Amoxicillin Allergy Hives Verified 12/28/16 09:05 Penicillins Allergy Hives Verified 12/28/16 09:05 Review of Systems Psychiatric: Reports: depression, suicidal ideation, mood swings Psychiatry Exam - Constitutional Vitals: Temp Pulse Resp BP Pulse Ox 98.8 F 97 14 113/74 96 09/20/18 16:00 09/20/18 16:00 09/20/18 16:00 09/20/18 16:00 09/20/18 16:00 General appearance: age & developmentally appropriate, well-groomed, well- nourished - Musculoskeletal Gait: normal Station: relaxed Strength & Tone: normal for patient - Psychiatric Patient Orientation: Yes Person, Yes Time, Yes Place Level of alertness: Alert Behavior: calm, cooperative Psychomotor activity: Slowed Eye Contact: Minimal Contact Mood Description: Depressed Affect description: congruent with mood, full range Speech Volume: Normal Speech pattern: normal rate, normal rhythm, normal tone, fluent, spontaneous Language & Vocabulary: consistent with education Thought Process: Linear, Goal Oriented Thought Content: No Suicidal ideation, No Homicidal ideation, No Overt delusions Perceptual Disturbances: No Auditory hallucinations, No Visual hallucinations Attention Span Ability: Capable of Sustained Attention Memory Description: Grossly Intact Patient Reliability: Reliable Historian Fund of knowledge: Yes abstraction ability, Yes aware of current events Intelligence Estimate: Average Judgment: Fair Insight: Partial Results - Labs Labs: Laboratory Last Values WBC 7.1 K/mcL (4.3-11.1) 09/20/18 04:53 RBC 4.33 M/mcL (4.19-5.50) 09/20/18 04:53 Hgb 13.4 g/dL (12.9-16.9) D 09/20/18 04:53 Hct 39.1 % (37.5-50.1) 09/20/18 04:53 MCV 90.3 fL (83.0-100.0) 09/20/18 04:53 MCH 30.9 pg (28.0-33.3) 09/20/18 04:53 MCHC 34.3 g/dL (31.6-35.5) 09/20/18 04:53 RDW 11.9 % (11.5-14.5) 09/20/18 04:53 Plt Count 171 K/mcL (140-400) 09/20/18 04:53 MPV 10.3 fL (9.4-12.4) 09/20/18 04:53 Immature Gran % 0.3 % (0-4) 09/20/18 04:53 Seg Neutrophils % 68.8 % 09/20/18 04:53 Lymphocytes % 22.1 % 09/20/18 04:53 Monocytes % 7.6 % 09/20/18 04:53 Eosinophils % 1.1 % 09/20/18 04:53 Basophils % 0.1 % 09/20/18 04:53 Neutrophils # 4.9 K/mcL (1.6-8.9) 09/20/18 04:53 Lymphocytes # 1.6 K/mcL (0.6-4.6) 09/20/18 04:53 Monocytes # 0.5 K/mcL (0.0-1.3) 09/20/18 04:53 Eosinophils # 0.1 K/mcL (0.0-0.6) 09/20/18 04:53 Basophils # 0.0 K/mcL (0.0-0.2) 09/20/18 04:53 PT 12.3 Seconds (9.4-12.1) H 09/19/18 07:51 INR 1.1 09/19/18 07:51 APTT 38.1 Seconds (26.0-36.0) H 09/19/18 07:51 VBG pH 7.08 pH Units (7.32-7.42) L* 09/19/18 08:37 VBG pCO2 72 mmHg (41-51) H* 09/19/18 08:37 VBG pO2 62 mmHg (25-50) H 09/19/18 08:37 VBG HCO3 21 mEq/L (21-27) 09/19/18 08:37 Sodium 138 mEq/L (136-145) 09/20/18 04:53 Potassium 3.5 mEq/L (3.5-5.1) 09/20/18 04:53 Chloride 105 mEq/L (98-107) 09/20/18 04:53 Carbon Dioxide 27 mEq/L (23-29) 09/20/18 04:53 BUN 11 mg/dL (6-20) 09/20/18 04:53 Creatinine 0.89 mg/dL (0.70-1.30) 09/20/18 04:53 Est GFR ( Amer) > 60 (> 60) 09/20/18 04:53 Est GFR (Non-Af Amer) > 60 (> 60) 09/20/18 04:53 BUN/Creatinine Ratio 12 (6-26) 09/20/18 04:53 Glucose 120 mg/dL (70-105) H 09/20/18 04:53 Calculated Osmolality 287 (280-300) 09/20/18 04:53 Lactic Acid 0.9 mmol/L (0.5-2.2) 09/19/18 19:31 Calcium 8.1 mg/dL (8.6-10.3) L 09/20/18 04:53 Phosphorus 2.9 mg/dL (2.7-4.5) 09/20/18 04:53 Magnesium 1.9 mg/dL (1.6-2.6) 09/20/18 04:53 Total Bilirubin 0.5 mg/dL (0.3-1.0) 09/20/18 04:53 Direct Bilirubin 0.1 mg/dL (0.0-0.2) 09/19/18 07:51 Indirect Bilirubin 0.1 mg/dL (0.0-1.2) 09/19/18 07:51 AST 386 Units/L (13-39) H 09/20/18 04:53 ALT 97 Units/L (7-52) H 09/20/18 04:53 Alkaline Phosphatase 61 Units/L (34-104) 09/20/18 04:53 Creatine Kinase > 95526 Units/L (30-223) H 09/20/18 12:06 Troponin I 0.15 ng/mL (< 0.04) H* 09/20/18 13:59 Serum Total Protein 5.4 g/dL (6.4-8.9) L 09/20/18 04:53 Albumin 3.5 g/dL (3.5-5.7) 09/20/18 04:53 Globulin 1.9 g/dL (2.4-3.5) L 09/20/18 04:53 Albumin/Globulin Ratio 1.8 (1.1-2.2) 09/20/18 04:53 TSH 8.022 mcIU/mL (0.340-5.600) H 09/19/18 07:51 Random Cortisol 18.9 mcg/dl 09/19/18 07:51 Urine Color Yellow (Yellow) 09/19/18 08:03 Urine Clarity Clear (Clear) 09/19/18 08:03 Urine pH 5.5 pH Units (5.0-8.0) 09/19/18 08:03 Ur Specific [place] 1.017 (1.010-1.025) 09/19/18 08:03 Urine Protein 30 mg/dL (Neg-Trace) H 09/19/18 08:03 Urine Glucose (UA) Normal mg/dL (Normal) 09/19/18 08:03 Urine Ketones Negative mg/dL (Negative) 09/19/18 08:03 Urine Blood Negative (Negative) 09/19/18 08:03 Urine Nitrite Negative (Negative) 09/19/18 08:03 Urine Bilirubin Negative (Negative) 09/19/18 08:03 Urine Urobilinogen Normal mg/dL (Normal) 09/19/18 08:03 Ur Leukocyte Esterase Negative (Negative) 09/19/18 08:03 Urine Microscopic WBC 0-3 per hpf (0-3) 09/19/18 08:03 Amorphous Sediment Few (Few) 09/19/18 08:03 Hyaline Casts Few per lpf (None-Few) 09/19/18 08:03 Granular Casts Few per lpf (None Seen) H 09/19/18 08:03 Urine Mucus Few (Few) 09/19/18 08:03 Ur Culture Indicated? NO (NO) 09/19/18 08:03 Salicylates < 2.5 mg/dL (15.0-30.0) L 09/19/18 07:51 Urine Opiates Screen Positive ng/mL (Ddfhhm=598) H 09/19/18 08:03 Acetaminophen < 10 mcg/mL (10-20) L 09/19/18 07:51 Ur Barbiturates Screen Negative ng/mL (Jpxrdi=718) 09/19/18 08:03 Ur Phencyclidine Scrn Negative ng/mL (Cutoff=25) 09/19/18 08:03 Ur Amphetamines Screen Negative ng/mL (Gikkyw=3333) 09/19/18 08:03 U Benzodiazepines Scrn Positive ng/mL (Iwdhca=221) H 09/19/18 08:03 Urine Cocaine Screen Negative ng/mL (Cutoff= 300) 09/19/18 08:03 U Marijuana (THC) Screen Negative ng/mL (Cutoff = 50) 09/19/18 08:03 Ur Drug Screen Interp See Below 09/19/18 08:03 Ethyl Alcohol < 10 mg/dL (Less than 10) 09/19/18 07:51 Person Notif of Marshall BROWN 09/19/18 08:37 Blood Type O POSITIVE 09/19/18 08:11 Antibody Screen NEGATIVE 09/19/18 08:11 Consult Discharge Plan - Plan Referrals: NONE,PCP [Primary Care Provider] -
[2018-09-21] MEDS: Nicotine 21 MG PATCH.TD24 TD SCH (07:33)
--- NOTE | 2018-09-21 09:13 | Internal Med Progress Note ---
Hospitalist Progress Note - Encounter Date of Encounter: 09/21/18 Time of Encounter: 09:11 - Subjective Interval History: I have seen and evaluated patient at bedside. Reports feeling stronger than yesterday, his lower extremity weakness has improved. But still is not able to ambulate without assistance. Denies chest pain, shortness of breath or abdom inal pain. - Exam Vitals: Temp Pulse Resp BP Pulse Ox 98.3 F 87 16 126/78 96 09/21/18 08:00 09/21/18 08:00 09/21/18 08:00 09/21/18 08:00 09/21/18 08:00 Exam: Vitals: Reviewed General: Alert and oriented 4. In mild distress due to lower extremity tenderness and pain. Skin: Normal color, no rash, no lesions. HEENT: EOM, pupils equal, round and reactive. Cardiovascular: RRR, Normal S1 & S2, no rubs, murmurs or gallops. Lungs: Clear to auscultation bilaterally, no wheezes or crackles. Abdomen: Soft, non-tender, no rigidity. Extremities: No deformity, no edema or tenderness, no joint swelling or club leslye. Neurological: Normal cognition and motor skills. Rest of the physical exam is non contributory - Assessment and Plan (1) Rhabdomyolysis Current Visit: Yes Status: Acute Assessment and Plan: Without acute kidney injury. Patient denies changes in his urine color. Pain localized the lower extremity. Plan Will stat 0.9NS@100 mls/hr for at least 24 hours (2) Bipolar disorder Current Visit: Yes Status: Chronic Assessment and Plan: No suicidal, homicidal ideation. No visual or auditory hallucination. Patient is pink slip. Patient will be transferred to the psychiatry unit once weakness of the lower extremity improves. (3) Suicidal ideation Current Visit: Yes Status: Acute Assessment and Plan: Plan of care as above (4) Hypothermia Current Visit: Yes Status: Resolved (5) Weakness generalized Current Visit: Yes Status: Acute Assessment and Plan: Following rhabdomyolysis. PT/OT. (6) Oral abscess Current Visit: Yes Status: Acute Assessment and Plan: Continue clindamycin 300 mg by mouth 3 times a day. DVT Prophylaxis: Heparin subcutaneous - Summary of Assessment and Plan Summary of Assessment and Plan: Patient to remain in the hospital for IV hydration due to rhabdomyolysis. Patient still reports weakness of the lower extremity, being unable to ambulate without assistance - Time Spent with Patient Total time spent is greater than 50% in coordination of care (as documented) at patient's floor/unit and/or counseling patient: Greater than 35 minutes (41) Plan of Care Discussed with: patient (On the nurse) Internal Medicine: Result - Labs CBC & Chem 7: 09/20/18 04:53 09/20/18 04:53 Labs: Cardiac Enzymes 09/20/18 09/20/18 Range/Units 08:26 13:59 Troponin I 0.20 H* 0.15 H* (< 0.04) ng/mL - ABG Interpretation ABG results: PT/INR, D-dimer PT 12.3 Seconds (9.4-12.1) H 09/19/18 07:51 - VTE Documentation of Mechanical Device: Intermittent pneumatic compression device Consult Discharge Plan - Plan Referrals: NONE,PCP [Primary Care Provider] - (1) Rhabdomyolysis Qualifiers: Rhabdomyolysis type: non-traumatic Qualified Code(s): M62.82 - Rhabdomyolysis (2) Bipolar disorder Qualifiers: Active/Remission status: currently active Current bipolar episode type: depressed Current episode severity: severe Psychotic features: without psychotic features Qualified Code(s): F31.4 - Bipolar disorder, current episode depressed, severe, without psychotic features (4) Hypothermia Qualifiers: Encounter type: initial encounter Qualified Code(s): T68.XXXA - Hypothermia, initial encounter
[2018-09-21 09:23] LABS: BUN/Creatinine Ratio 9 (6-26); Blood Urea Nitrogen 7 mg/dL (6-20); Carbon Dioxide 27 mEq/L (23-29); Chloride 108 mEq/L (98-107); Creatine Kinase > 20000 Units/L (30-223); Glucose 107 mg/dL (70-105); Magnesium 1.9 mg/dL (1.6-2.6); Osmolality,Calculated 288 (280-300); Phosphorous 2.3 mg/dL (2.7-4.5); Sodium 140 mEq/L (136-145); eGFR For Non-African Americans > 60 (> 60)
[2018-09-21] MEDS: 0.9 % Sodium Chloride 1,000 ML IVC SCH (09:25)
--- NOTE | 2018-09-21 15:57 | Consult Note ---
Date of Encounter: 09/21/18 Time of Encounter: 15:30 Assessment & Recommendation (1) Opioid dependence with opioid-induced mood disorder Current visit: Yes Status: Acute (2) Bipolar disorder Current visit: Yes Status: Chronic Qualifiers: Active/Remission status: currently active Current bipolar episode type: depressed Current episode severity: severe Psychotic features: without psychotic features Qualified Code(s): F31.4 - Bipolar disorder, current episode depressed, severe, without psychotic features History of Present Illness Patient: known to practice within the last 3 years Requesting Physician: Ann Mcdaniel MD Reason for consult: Patient with bipolar disorder History of present illness: Mr. Owens is a 23 year old male Chief complaint continued get me into another program. They are doing drugs in the program that the court sent me to History of present illness patient reports that he has a court order from the [facility] court to go into substance abuse treatment. While there he developed mood disturbance and relapsed. The relapse was associated with hypothermia. The patient was treated and recovered but also associated with rhabdomyolysis and the patient's CK remains above 20,000. The patient requires hydration. He has pain on ambulation and has difficulty walking very far. The patient noted no significant mood disturbances or psychosis nonetheless he is at risk for suicide based on the recent history and the nature of his bipolar disorder. Further stabilization is necessary. The patient remains on a pink slip and requires a sitter. CC: Ann Mcdaniel MD Past Med Surg Social Fam HX - Past Medical History Medical history: no medical history - Past Surgical History Surgical History: no surgical history - Social History Smoking Status: Current every day smoker Smokeless Tobacco Status: No Alcohol use: none Drug use: cocaine, opiates, marijuana, IV Drug Use Medications & Allergies Clindamycin HCl [Cleocin HCl] 300 mg PO TID 09/19/18 [History] Allergy/AdvReac Type Severity Reaction Status Date / Time Amoxicillin Allergy Hives Verified 12/28/16 09:05 Penicillins Allergy Hives Verified 12/28/16 09:05 Review of Systems Psychiatric: Reports: depression, anxiety, suicidal ideation, mood swings Psychiatry Exam - Constitutional Vitals: Temp Pulse Resp BP Pulse Ox 98.4 F 88 16 120/69 97 09/21/18 11:11 09/21/18 11:11 09/21/18 11:11 09/21/18 11:11 09/21/18 11:11 General appearance: age & developmentally appropriate, unkempt, thin - Psychiatric Patient Orientation: Yes Person Level of alertness: Alert Behavior: calm, cooperative Psychomotor activity: Normal Eye Contact: Maintains Eye Contact Mood Description: Depressed, Anxious Affect description: congruent with mood, full range, blunted Speech Volume: Soft/Quiet Speech pattern: normal rate, normal rhythm, normal tone, fluent, spontaneous, limited Language & Vocabulary: consistent with education Thought Process: Linear, Goal Oriented Thought Content: Yes Suicidal ideation, No Homicidal ideation, No Overt delusions Perceptual Disturbances: No Auditory hallucinations, No Visual hallucinations Attention Span Ability: Capable of Sustained Attention Memory Description: Recent Impaired Patient Reliability: Reliable Historian Fund of knowledge: Yes abstraction ability, Yes below average Intelligence Estimate: Average Judgment: Poor Insight: None Results - Labs Labs: Laboratory Last Values WBC 7.1 K/mcL (4.3-11.1) 09/20/18 04:53 RBC 4.33 M/mcL (4.19-5.50) 09/20/18 04:53 Hgb 13.4 g/dL (12.9-16.9) D 09/20/18 04:53 Hct 39.1 % (37.5-50.1) 09/20/18 04:53 MCV 90.3 fL (83.0-100.0) 09/20/18 04:53 MCH 30.9 pg (28.0-33.3) 09/20/18 04:53 MCHC 34.3 g/dL (31.6-35.5) 09/20/18 04:53 RDW 11.9 % (11.5-14.5) 09/20/18 04:53 Plt Count 171 K/mcL (140-400) 09/20/18 04:53 MPV 10.3 fL (9.4-12.4) 09/20/18 04:53 Immature Gran % 0.3 % (0-4) 09/20/18 04:53 Seg Neutrophils % 68.8 % 09/20/18 04:53 Lymphocytes % 22.1 % 09/20/18 04:53 Monocytes % 7.6 % 09/20/18 04:53 Eosinophils % 1.1 % 09/20/18 04:53 Basophils % 0.1 % 09/20/18 04:53 Neutrophils # 4.9 K/mcL (1.6-8.9) 09/20/18 04:53 Lymphocytes # 1.6 K/mcL (0.6-4.6) 09/20/18 04:53 Monocytes # 0.5 K/mcL (0.0-1.3) 09/20/18 04:53 Eosinophils # 0.1 K/mcL (0.0-0.6) 09/20/18 04:53 Basophils # 0.0 K/mcL (0.0-0.2) 09/20/18 04:53 PT 12.3 Seconds (9.4-12.1) H 09/19/18 07:51 INR 1.1 09/19/18 07:51 APTT 38.1 Seconds (26.0-36.0) H 09/19/18 07:51 VBG pH 7.08 pH Units (7.32-7.42) L* 09/19/18 08:37 VBG pCO2 72 mmHg (41-51) H* 09/19/18 08:37 VBG pO2 62 mmHg (25-50) H 09/19/18 08:37 VBG HCO3 21 mEq/L (21-27) 09/19/18 08:37 Sodium 140 mEq/L (136-145) 09/21/18 08:03 Potassium 4.0 mEq/L (3.5-5.1) 09/21/18 08:03 Chloride 108 mEq/L (98-107) H 09/21/18 08:03 Carbon Dioxide 27 mEq/L (23-29) 09/21/18 08:03 BUN 7 mg/dL (6-20) 09/21/18 08:03 Creatinine 0.80 mg/dL (0.70-1.30) 09/21/18 08:03 Est GFR ( Amer) > 60 (> 60) 09/21/18 08:03 Est GFR (Non-Af Amer) > 60 (> 60) 09/21/18 08:03 BUN/Creatinine Ratio 9 (6-26) 09/21/18 08:03 Glucose 107 mg/dL (70-105) H 09/21/18 08:03 Calculated Osmolality 288 (280-300) 09/21/18 08:03 Lactic Acid 0.9 mmol/L (0.5-2.2) 09/19/18 19:31 Calcium 9.0 mg/dL (8.6-10.3) 09/21/18 08:03 Phosphorus 2.3 mg/dL (2.7-4.5) L 09/21/18 08:03 Magnesium 1.9 mg/dL (1.6-2.6) 09/21/18 08:03 Total Bilirubin 0.5 mg/dL (0.3-1.0) 09/20/18 04:53 Direct Bilirubin 0.1 mg/dL (0.0-0.2) 09/19/18 07:51 Indirect Bilirubin 0.1 mg/dL (0.0-1.2) 09/19/18 07:51 AST 386 Units/L (13-39) H 09/20/18 04:53 ALT 97 Units/L (7-52) H 09/20/18 04:53 Alkaline Phosphatase 61 Units/L (34-104) 09/20/18 04:53 Creatine Kinase > 90759 Units/L (30-223) H 09/21/18 08:03 Troponin I 0.15 ng/mL (< 0.04) H* 09/20/18 13:59 Serum Total Protein 5.4 g/dL (6.4-8.9) L 09/20/18 04:53 Albumin 3.5 g/dL (3.5-5.7) 09/20/18 04:53 Globulin 1.9 g/dL (2.4-3.5) L 09/20/18 04:53 Albumin/Globulin Ratio 1.8 (1.1-2.2) 09/20/18 04:53 TSH 8.022 mcIU/mL (0.340-5.600) H 09/19/18 07:51 Random Cortisol 18.9 mcg/dl 09/19/18 07:51 Urine Color Yellow (Yellow) 09/19/18 08:03 Urine Clarity Clear (Clear) 09/19/18 08:03 Urine pH 5.5 pH Units (5.0-8.0) 09/19/18 08:03 Ur Specific [place] 1.017 (1.010-1.025) 09/19/18 08:03 Urine Protein 30 mg/dL (Neg-Trace) H 09/19/18 08:03 Urine Glucose (UA) Normal mg/dL (Normal) 09/19/18 08:03 Urine Ketones Negative mg/dL (Negative) 09/19/18 08:03 Urine Blood Negative (Negative) 09/19/18 08:03 Urine Nitrite Negative (Negative) 09/19/18 08:03 Urine Bilirubin Negative (Negative) 09/19/18 08:03 Urine Urobilinogen Normal mg/dL (Normal) 09/19/18 08:03 Ur Leukocyte Esterase Negative (Negative) 09/19/18 08:03 Urine Microscopic WBC 0-3 per hpf (0-3) 09/19/18 08:03 Amorphous Sediment Few (Few) 09/19/18 08:03 Hyaline Casts Few per lpf (None-Few) 09/19/18 08:03 Granular Casts Few per lpf (None Seen) H 09/19/18 08:03 Urine Mucus Few (Few) 09/19/18 08:03 Ur Culture Indicated? NO (NO) 09/19/18 08:03 Salicylates < 2.5 mg/dL (15.0-30.0) L 09/19/18 07:51 Urine Opiates Screen Positive ng/mL (Sciicm=296) H 09/19/18 08:03 Acetaminophen < 10 mcg/mL (10-20) L 09/19/18 07:51 Ur Barbiturates Screen Negative ng/mL (Uozgjm=693) 09/19/18 08:03 Ur Phencyclidine Scrn Negative ng/mL (Cutoff=25) 09/19/18 08:03 Ur Amphetamines Screen Negative ng/mL (Mbsibj=2420) 09/19/18 08:03 U Benzodiazepines Scrn Positive ng/mL (Sxavvi=178) H 09/19/18 08:03 Urine Cocaine Screen Negative ng/mL (Cutoff= 300) 09/19/18 08:03 U Marijuana (THC) Screen Negative ng/mL (Cutoff = 50) 09/19/18 08:03 Ur Drug Screen Interp See Below 09/19/18 08:03 Ethyl Alcohol < 10 mg/dL (Less than 10) 09/19/18 07:51 Person Notif of Marshall BROWN 09/19/18 08:37 Blood Type O POSITIVE 09/19/18 08:11 Antibody Screen NEGATIVE 09/19/18 08:11 Consult Discharge Plan - Plan Referrals: NONE,PCP [Primary Care Provider] -
[2018-09-21] MEDS: *HR* Heparin 5,000 UNIT/ML VIAL SQ SCH (17:45)
[2018-09-22] MEDS: 0.9 % Sodium Chloride 1,000 ML IVC SCH (00:11)
[2018-09-22] MEDS: *HR* Heparin 5,000 UNIT/ML VIAL SQ SCH (06:21)
[2018-09-22 08:29] LABS: BUN/Creatinine Ratio 13 (6-26); Blood Urea Nitrogen 11 mg/dL (6-20); Calcium 8.9 mg/dL (8.6-10.3); Carbon Dioxide 22 mEq/L (23-29); Chloride 110 mEq/L (98-107); Glucose 102 mg/dL (70-105); Magnesium 1.9 mg/dL (1.6-2.6); Osmolality,Calculated 292 (280-300); Phosphorous 3.5 mg/dL (2.7-4.5); Potassium 4.1 mEq/L (3.5-5.1); Sodium 141 mEq/L (136-145); eGFR For Non-African Americans > 60 (> 60)
--- NOTE | 2018-09-22 08:57 | Electrocardiograph Report ---
[address] [place], [place] [address] Test Date: 2018-09-19 Pat Name: Conrad wOens Department: 112 Room: [facility] Gender: M Room Service Bellhop: : 1995 Requested By: Christopher Lewis Order Number: [id number] Reading MD: Yamile Camarena Measurements Intervals [place] Rate: 119 P: 64 [place]: 129 QRS: 43 QRSD: 80 T: 46 QT: 289 QTc: 360 Interpretive Statements SINUS TACHYCARDIA ABNORMAL RHYTHM ECG Electronically Signed On 09-22-2018 8:56:22 EST by Yamile Camarena
--- NOTE | 2018-09-22 09:01 | Discharge Summary ---
Date of Encounter: 09/22/18 Time of Encounter: 08:56 - Discharge Diagnosis (1) Rhabdomyolysis Priority: Primary Status: Resolved Qualifiers: Rhabdomyolysis type: non-traumatic Qualified Code(s): M62.82 - Rhabdomyolysis (2) Bipolar disorder Priority: Secondary Status: Chronic Qualifiers: Active/Remission status: currently active Current bipolar episode type: depressed Current episode severity: severe Psychotic features: without psychotic features Qualified Code(s): F31.4 - Bipolar disorder, current episode depressed, severe, without psychotic features (3) Suicidal ideation Priority: Secondary Status: Acute (4) Hypothermia Priority: Secondary Status: Resolved Qualifiers: Encounter type: initial encounter Qualified Code(s): T68.XXXA - Hypothermia, initial encounter (5) Weakness generalized Priority: Secondary Status: Resolved (6) Oral abscess Priority: Secondary Status: Acute Hospital course: Mr. Owens is a 23 year old male past medical history of polysubstance abuse who presented today after being found by a bystander. [place] and was unresponsive. Patient admitted to the critical care unit due to hyponatremia, rhabdomyolysis. Patient acute symptoms resolved. Patient stepped down to regular floor. But due to suicidal ideation and psychiatry was consulted, and patient is being transferred to their service. Patient is hemodynamically stable to be discharged. - Time Spent with Patient Total time spent providing and/or coordinating discharge services: Greater than 30 minutes (35) - Discharge Medications Prescriptions: Clindamycin HCl [Cleocin HCl] 300 mg PO TID 5 Days #15 capsule Home Medications: Clindamycin HCl [Cleocin HCl] 300 mg PO TID 5 Days #15 capsule 09/22/18 [Rx] Allergies/Adverse Reactions: Allergy/AdvReac Type Severity Reaction Status Date / Time Amoxicillin Allergy Hives Verified 12/28/16 09:05 Penicillins Allergy Hives Verified 12/28/16 09:05 Date of admission: 09/19/18 10:26 Primary care physician: PCP NONE Consults: 09/19/18 16:37 Consult to Psychiatry [CONS] Routine Consulting Provider: Psychiatry Nikki Reason consult: Other Other reason and/or additional details: Pt has hx of SI and depression. Mom found a journal of in which pt wrote he wished he wasn't alive. Pt currently denying any SI or HI. Call Completed: No 09/21/18 09:10 Consult to Physical Therapy [CONS] Routine Comment: Evaluate, develop and implement POC Reason for Consult: Weakness post rhabdomyolysis Does patient have active BEDREST order?: No Is patient medically & hemodynamically stable?: Yes 09/21/18 09:11 Consult to Occupational Therapy [CONS] Routine Comment: Evaluate, develop and implement POC Reason for Consult: Weakness post rhabdomyolysis Does patient have active BEDREST order?: No Is patient medically & hemodynamically stable?: Yes - Constitutional Vitals: Temp Pulse Resp BP Pulse Ox 97.7 F 66 12 104/55 91 09/22/18 07:37 09/22/18 07:37 09/22/18 07:37 09/22/18 07:37 09/22/18 07:37 Exam: Vitals: Reviewed General: Alert and oriented 4. In no acute distress. Skin: Normal color, no rash, no lesions. Cardiovascular: RRR, Normal S1 & S2, no rubs, murmurs or gallops. Lungs: Clear to auscultation bilaterally, no wheezes or crackles. Abdomen: Soft, non-tender, no rigidity. Extremities: No deformity, no edema or tenderness, no joint swelling or clubbing. Neurological: Normal cognition and motor skills. Rest of the physical exam is non contributory - Patient Status Disposition: Transfer Psychiatric Hosp Condition: Good Functional capacity at discharge: independent ambulation Overall status at discharge: patient is back to baseline - Discharge Instructions Follow Up With: NONE,PCP [Primary Care Provider] - - Diet and Activity Activity: resume usual activities as tolerated Diet: advance to your usual diet - VTE Documentation of Mechanical Device: Intermittent pneumatic compression device
[2018-09-22] MEDS: Nicotine 21 MG PATCH.TD24 TD SCH (09:47)
--- NOTE | 2018-09-22 10:43 | Consult Note ---
Date of Encounter: 09/22/18 Time of Encounter: 09:45 Assessment & Recommendation (1) Opioid dependence with opioid-induced mood disorder Current visit: Yes Status: Acute (2) Bipolar disorder Current visit: Yes Status: Chronic Qualifiers: Active/Remission status: currently active Current bipolar episode type: depressed Current episode severity: severe Psychotic features: without psychotic features Qualified Code(s): F31.4 - Bipolar disorder, current episode depressed, severe, without psychotic features (3) Has access to planned means of suicide Current visit: Yes Status: Acute History of Present Illness Patient: known to practice within the last 3 years Requesting Physician: Vinh Alfaro MD Reason for consult: I can financial planning consultant the shower History of present illness: Mr. Owens is a 23 year old male Chief complaint I could financial planning consultant the shower I think I can walk to the nurses station. History of present illness: The patient has been followed. He has a an unspecified form of bipolar disorder. There is significant evidence of suicidal ideation even though the patient is reporting that he is cooperative. The patient's impulsivity and recent serious suicide attempt necessitate a pink slip for involuntary hospitalization. Now that he is medically cleared and transferred to one a can commence. CC: Vinh Alfaro MD Past Med Surg Social Fam HX - Past Medical History Medical history: no medical history - Past Surgical History Surgical History: no surgical history - Social History Smoking Status: Current every day smoker Smokeless Tobacco Status: No Alcohol use: none Drug use: cocaine, opiates, marijuana, IV Drug Use Medications & Allergies Clindamycin HCl [Cleocin HCl] 300 mg PO TID 5 Days #15 capsule 09/22/18 [Rx] Allergy/AdvReac Type Severity Reaction Status Date / Time Amoxicillin Allergy Hives Verified 12/28/16 09:05 Penicillins Allergy Hives Verified 12/28/16 09:05 Review of Systems Psychiatric: Reports: depression, anxiety, suicidal ideation, mood swings Psychiatry Exam - Constitutional Vitals: Temp Pulse Resp BP Pulse Ox 97.7 F 66 12 104/55 91 09/22/18 07:37 09/22/18 07:37 09/22/18 07:37 09/22/18 07:37 09/22/18 07:37 General appearance: age & developmentally appropriate, well-groomed, well- nourished - Musculoskeletal Gait: slow Station: relaxed Strength & Tone: severe weakness - Psychiatric Patient Orientation: Yes Person, Yes Time, Yes Place Level of alertness: Alert Behavior: calm, cooperative Psychomotor activity: Normal Eye Contact: Maintains Eye Contact Mood Description: Other Affect description: full range, inappropriate to situation, incongruent with mood Speech Volume: Normal Speech pattern: normal rate, normal rhythm, normal tone, fluent, spontaneous Language & Vocabulary: consistent with education Thought Process: Linear, Goal Oriented Thought Content: Yes Suicidal ideation, No Homicidal ideation, No Overt delusions Perceptual Disturbances: No Auditory hallucinations, No Visual hallucinations Attention Span Ability: Capable of Sustained Attention Memory Description: Grossly Intact Fund of knowledge: Yes abstraction ability, Yes aware of current events Intelligence Estimate: Average Judgment: Limited Insight: Minimal Results - Labs Labs: Laboratory Last Values WBC 7.1 K/mcL (4.3-11.1) 09/20/18 04:53 RBC 4.33 M/mcL (4.19-5.50) 09/20/18 04:53 Hgb 13.4 g/dL (12.9-16.9) D 09/20/18 04:53 Hct 39.1 % (37.5-50.1) 09/20/18 04:53 MCV 90.3 fL (83.0-100.0) 09/20/18 04:53 MCH 30.9 pg (28.0-33.3) 09/20/18 04:53 MCHC 34.3 g/dL (31.6-35.5) 09/20/18 04:53 RDW 11.9 % (11.5-14.5) 09/20/18 04:53 Plt Count 171 K/mcL (140-400) 09/20/18 04:53 MPV 10.3 fL (9.4-12.4) 09/20/18 04:53 Immature Gran % 0.3 % (0-4) 09/20/18 04:53 Seg Neutrophils % 68.8 % 09/20/18 04:53 Lymphocytes % 22.1 % 09/20/18 04:53 Monocytes % 7.6 % 09/20/18 04:53 Eosinophils % 1.1 % 09/20/18 04:53 Basophils % 0.1 % 09/20/18 04:53 Neutrophils # 4.9 K/mcL (1.6-8.9) 09/20/18 04:53 Lymphocytes # 1.6 K/mcL (0.6-4.6) 09/20/18 04:53 Monocytes # 0.5 K/mcL (0.0-1.3) 09/20/18 04:53 Eosinophils # 0.1 K/mcL (0.0-0.6) 09/20/18 04:53 Basophils # 0.0 K/mcL (0.0-0.2) 09/20/18 04:53 PT 12.3 Seconds (9.4-12.1) H 09/19/18 07:51 INR 1.1 09/19/18 07:51 APTT 38.1 Seconds (26.0-36.0) H 09/19/18 07:51 VBG pH 7.08 pH Units (7.32-7.42) L* 09/19/18 08:37 VBG pCO2 72 mmHg (41-51) H* 09/19/18 08:37 VBG pO2 62 mmHg (25-50) H 09/19/18 08:37 VBG HCO3 21 mEq/L (21-27) 09/19/18 08:37 Sodium 141 mEq/L (136-145) 09/22/18 07:34 Potassium 4.1 mEq/L (3.5-5.1) 09/22/18 07:34 Chloride 110 mEq/L (98-107) H 09/22/18 07:34 Carbon Dioxide 22 mEq/L (23-29) L 09/22/18 07:34 BUN 11 mg/dL (6-20) 09/22/18 07:34 Creatinine 0.86 mg/dL (0.70-1.30) 09/22/18 07:34 Est GFR ( Amer) > 60 (> 60) 09/22/18 07:34 Est GFR (Non-Af Amer) > 60 (> 60) 09/22/18 07:34 BUN/Creatinine Ratio 13 (6-26) 09/22/18 07:34 Glucose 102 mg/dL (70-105) 09/22/18 07:34 Calculated Osmolality 292 (280-300) 09/22/18 07:34 Lactic Acid 0.9 mmol/L (0.5-2.2) 09/19/18 19:31 Calcium 8.9 mg/dL (8.6-10.3) 09/22/18 07:34 Phosphorus 3.5 mg/dL (2.7-4.5) 09/22/18 07:34 Magnesium 1.9 mg/dL (1.6-2.6) 09/22/18 07:34 Total Bilirubin 0.5 mg/dL (0.3-1.0) 09/20/18 04:53 Direct Bilirubin 0.1 mg/dL (0.0-0.2) 09/19/18 07:51 Indirect Bilirubin 0.1 mg/dL (0.0-1.2) 09/19/18 07:51 AST 386 Units/L (13-39) H 09/20/18 04:53 ALT 97 Units/L (7-52) H 09/20/18 04:53 Alkaline Phosphatase 61 Units/L (34-104) 09/20/18 04:53 Creatine Kinase > 00776 Units/L (30-223) H 09/21/18 08:03 Troponin I 0.15 ng/mL (< 0.04) H* 09/20/18 13:59 Serum Total Protein 5.4 g/dL (6.4-8.9) L 09/20/18 04:53 Albumin 3.5 g/dL (3.5-5.7) 09/20/18 04:53 Globulin 1.9 g/dL (2.4-3.5) L 09/20/18 04:53 Albumin/Globulin Ratio 1.8 (1.1-2.2) 09/20/18 04:53 TSH 8.022 mcIU/mL (0.340-5.600) H 09/19/18 07:51 Random Cortisol 18.9 mcg/dl 09/19/18 07:51 Urine Color Yellow (Yellow) 09/19/18 08:03 Urine Clarity Clear (Clear) 09/19/18 08:03 Urine pH 5.5 pH Units (5.0-8.0) 09/19/18 08:03 Ur Specific [place] 1.017 (1.010-1.025) 09/19/18 08:03 Urine Protein 30 mg/dL (Neg-Trace) H 09/19/18 08:03 Urine Glucose (UA) Normal mg/dL (Normal) 09/19/18 08:03 Urine Ketones Negative mg/dL (Negative) 09/19/18 08:03 Urine Blood Negative (Negative) 09/19/18 08:03 Urine Nitrite Negative (Negative) 09/19/18 08:03 Urine Bilirubin Negative (Negative) 09/19/18 08:03 Urine Urobilinogen Normal mg/dL (Normal) 09/19/18 08:03 Ur Leukocyte Esterase Negative (Negative) 09/19/18 08:03 Urine Microscopic WBC 0-3 per hpf (0-3) 09/19/18 08:03 Amorphous Sediment Few (Few) 09/19/18 08:03 Hyaline Casts Few per lpf (None-Few) 09/19/18 08:03 Granular Casts Few per lpf (None Seen) H 09/19/18 08:03 Urine Mucus Few (Few) 09/19/18 08:03 Ur Culture Indicated? NO (NO) 09/19/18 08:03 Salicylates < 2.5 mg/dL (15.0-30.0) L 09/19/18 07:51 Urine Opiates Screen Positive ng/mL (Kwsxrb=648) H 09/19/18 08:03 Acetaminophen < 10 mcg/mL (10-20) L 09/19/18 07:51 Ur Barbiturates Screen Negative ng/mL (Odrygd=132) 09/19/18 08:03 Ur Phencyclidine Scrn Negative ng/mL (Cutoff=25) 09/19/18 08:03 Ur Amphetamines Screen Negative ng/mL (Lxyedl=8200) 09/19/18 08:03 U Benzodiazepines Scrn Positive ng/mL (Fbcehi=384) H 09/19/18 08:03 Urine Cocaine Screen Negative ng/mL (Cutoff= 300) 09/19/18 08:03 U Marijuana (THC) Screen Negative ng/mL (Cutoff = 50) 09/19/18 08:03 Ur Drug Screen Interp See Below 09/19/18 08:03 Ethyl Alcohol < 10 mg/dL (Less than 10) 09/19/18 07:51 Person Notif of Marshall MENDEZG 09/19/18 08:37 Blood Type O POSITIVE 09/19/18 08:11 Antibody Screen NEGATIVE 09/19/18 08:11 Consult Discharge Plan - Plan Referrals: NONE,PCP [Primary Care Provider] - Prescriptions: Clindamycin HCl [Cleocin HCl] 300 mg PO TID 5 Days #15 capsule
[2018-09-22] MEDS ORDERED: 0.9 % Sodium Chloride 1,000 ML IVC SCH ×2 (11:30)
[2018-09-22 11:48] VITALS: BP 114/67
== END 2018-09-22 14:22 | DRG 815 ==
LOC: EMEROOARM 10:13 → SUATTDRO 10:26 → ICNU 10:26 → 3NENU 09-20 15:17
PROVIDERS: ADMIT Internal Medicine Pulmonary Disease; ATTEND Internal Medicine